=== PATIENT | male | born 1945 | race Caucasian/White ===

== ENCOUNTER 2019-09-04 20:32 | Inpatient (IN) | payer MEDICARE, OTHER ==
[2019-09-04] MEDS ORDERED: Ondansetron 4 mg VIAL 2 MG/ML 2 ml VIAL IV PRN (23:40)
[2019-09-05 00:23] LABS: ABS Basophils 0.1 10^3/ul (0-0.2); Hematocrit 43 % (42-52); Hemoglobin 14.6 g/dL (14.0-18.0); Lymphocyte % 9.6 %; Mean Corpuscular HGB Conc 34 g/dL (31-36); Mean Corpuscular Hemoglobin 31 pg (27-31); Mean Corpuscular Volume 91 fL (80-94); Mean Platelet Volume 9.8 fL (7.4-10.4); Nucleated Red Blood Cells % 0.1; Platelet Count 166 10^3/uL (150-450); Red Blood Count 4.74 10^6 /uL (4.18-5.48); Red Cell Distribution Width 14 % (10-15); White Blood Count 10.8 10^3/uL (3.5-10.8)
[2019-09-05 00:42] LABS: BUN/Creatinine Ratio 17.2 (8-20); Blood Urea Nitrogen 20 mg/dL (6-24); C Reactive Protein 405.85 mg/L (<8.01); CO2 Carbon Dioxide 26 mmol/L (22-32); Calcium 9.1 mg/dL (8.6-10.3); Creatine Kinase 1058 U/L (10-223); EGFR African American 74.7 (>60); EGFR Non-African American 61.7 (>60); Glucose 126 mg/dL (70-100); Potassium 4.1 mmol/L (3.5-5.0)
[2019-09-05 00:46] LABS: Anion Gap 10 mmol/L (2-11); Chloride 114 mmol/L (101-111); Sodium 150 mmol/L (135-145); Troponin I 0.05 ng/mL (<0.03)
[2019-09-05 00:58] LABS: LDH 306 U/L (140-271)
[2019-09-05] MEDS ORDERED: D5W 1000 ml BAG 1,000 ML IV SCH ×3 (01:00→15:26)
[2019-09-05] MEDS: Enoxaparin 40 MG/0.4 ML SYR(*) SUBCUT SCH ×2 (02:06→19:58)
[2019-09-05 06:36] LABS: BUN/Creatinine Ratio 15.8 (8-20); Blood Urea Nitrogen 15 mg/dL (6-24); CO2 Carbon Dioxide 17 mmol/L (22-32); Calcium 6.6 mg/dL (8.6-10.3); Chloride 85 mmol/L (101-111); Creatine Kinase 587 U/L (10-223); EGFR Non-African American 77.7 (>60)
[2019-09-05 06:40] LABS: Anion Gap 9 mmol/L (2-11); Potassium 2.7 mmol/L (3.5-5.0); Sodium 111 mmol/L (135-145)
[2019-09-05 07:11] LABS: Glucose 1238 mg/dL (70-100)
[2019-09-05 07:54] LABS: BUN/Creatinine Ratio 20.2 (8-20); Calcium 8.6 mg/dL (8.6-10.3); EGFR African American 89.7 (>60); EGFR Non-African American 74.1 (>60); Potassium 3.8 mmol/L (3.5-5.0)
[2019-09-05 08:00] LABS: Troponin I 0.05 ng/mL (<0.03)
[2019-09-05] MEDS: Albuterol HFA INHALER 8 gm MDI INH PRN (16:04)
[2019-09-05] MEDS: cefTRIAXone ADVAN VIAL 1 GM in NS 0.9% 50 ML 50 ML IVPB SCH (17:56)
[2019-09-05] MEDS: Azithromycin 500 mg/250 ml NS 500 MG/250 ML BAG IVPB SCH (18:20)
[2019-09-05 20:14] LABS: Calcium 8.5 mg/dL (8.6-10.3); Potassium 3.5 mmol/L (3.5-5.0)
[2019-09-05 20:20] LABS: BUN/Creatinine Ratio 21.6 (8-20); EGFR African American 86.6 (>60); EGFR Non-African American 71.6 (>60)
[2019-09-06 09:26] LABS: BUN/Creatinine Ratio 19.5 (8-20); Calcium 8.3 mg/dL (8.6-10.3); EGFR African American 104.1 (>60); Magnesium 1.9 mg/dL (1.9-2.7); Potassium 3.6 mmol/L (3.5-5.0)
[2019-09-06] MEDS: cefTRIAXone ADVAN VIAL 1 GM in NS 0.9% 50 ML 50 ML IVPB SCH (18:39)
[2019-09-06] MEDS: Azithromycin 500 mg/250 ml NS 500 MG/250 ML BAG IVPB SCH (20:53)
[2019-09-06] MEDS: Polyethylene Glycol 3350 17 GM PACKET PO SCH (20:53)
[2019-09-06] MEDS: Enoxaparin 40 MG/0.4 ML SYR(*) SUBCUT SCH (20:56)
[2019-09-07] MEDS: Albuterol HFA INHALER 8 gm MDI INH PRN (10:00)
[2019-09-07] MEDS: cefTRIAXone ADVAN VIAL 1 GM in NS 0.9% 50 ML 50 ML IVPB SCH (21:22)
[2019-09-07] MEDS: Polyethylene Glycol 3350 17 GM PACKET PO SCH (21:22)
[2019-09-07] MEDS: Enoxaparin 40 MG/0.4 ML SYR(*) SUBCUT SCH (23:06)
[2019-09-07] MEDS: Azithromycin 500 mg/250 ml NS 500 MG/250 ML BAG IVPB SCH (23:06)
[2019-09-08] MEDS: Polyethylene Glycol 3350 17 GM PACKET PO SCH (10:39)
[2019-09-08] MEDS: cefTRIAXone ADVAN VIAL 1 GM in NS 0.9% 50 ML 50 ML IVPB SCH (17:51)
[2019-09-08] MEDS: Azithromycin 500 mg/250 ml NS 500 MG/250 ML BAG IVPB SCH (18:35)
[2019-09-08] MEDS: Enoxaparin 40 MG/0.4 ML SYR(*) SUBCUT SCH (21:48)
[2019-09-09] MEDS: Polyethylene Glycol 3350 17 GM PACKET PO SCH (09:13)
[2019-09-09] MEDS: cefTRIAXone ADVAN VIAL 1 GM in NS 0.9% 50 ML 50 ML IVPB SCH (17:47)
[2019-09-09] MEDS: Azithromycin 500 mg/250 ml NS 500 MG/250 ML BAG IVPB SCH (18:27)
[2019-09-09] MEDS: Enoxaparin 40 MG/0.4 ML SYR(*) SUBCUT SCH (22:05)
[2019-09-10] MEDS: Polyethylene Glycol 3350 17 GM PACKET PO SCH (11:14)
[2019-09-10] MEDS: cefTRIAXone ADVAN VIAL 1 GM in NS 0.9% 50 ML 50 ML IVPB SCH (18:20)
[2019-09-10] MEDS: Azithromycin 500 mg/250 ml NS 500 MG/250 ML BAG IVPB SCH (20:15)
[2019-09-10] MEDS: Enoxaparin 40 MG/0.4 ML SYR(*) SUBCUT SCH (20:16)
[2019-09-11] MEDS: Polyethylene Glycol 3350 17 GM PACKET PO SCH (09:19)
[2019-09-11] MEDS: cefTRIAXone ADVAN VIAL 1 GM in NS 0.9% 50 ML 50 ML IVPB SCH (17:03)
[2019-09-11] MEDS: Enoxaparin 40 MG/0.4 ML SYR(*) SUBCUT SCH (20:45)
[2019-09-12 06:52] LABS: BUN/Creatinine Ratio 19.7 (8-20); Calcium 8.9 mg/dL (8.6-10.3); EGFR African American 121.6 (>60); EGFR Non-African American 100.5 (>60); Potassium 4.2 mmol/L (3.5-5.0)
[2019-09-12] MEDS: Polyethylene Glycol 3350 17 GM PACKET PO SCH (09:22)
[2019-09-12 13:34] VITALS: BP 116/64
== END 2019-09-12 14:15 | DRG 193 ==
LOC: MED 22:10
PROVIDERS: ADMIT Internal Medicine; ATTEND Internal Medicine